=== PATIENT | male | born 1940 | race Caucasian/White ===

== ENCOUNTER 2023-03-28 12:05 | Inpatient (IN) | payer OTHER ==
[~2023-03-28] VITALS: Ht 190.5 cm; Wt 81.6 kg
[2023-03-28 12:14] VITALS: BP_SYST 88; PULSE 83; RESP 18; TEMP 98.3; O2SAT 96
[2023-03-28] MEDS ORDERED: NACL 0.9% 1,000 ML IV ONE (13:15)
[2023-03-28] MEDS ORDERED: SERT-436 PO (13:43)
[2023-03-28] MEDS ORDERED: METF-379 PO ×2 (13:43→15:21)
[2023-03-28] MEDS ORDERED: BENA40TA89 PO (13:43)
[2023-03-28] MEDS ORDERED: OXYC5TAB3 PO (13:43)
[2023-03-28 13:44] LABS: BILIRUBIN,URINE NEGATIVE (NEGATIVE); CLARITY/URINE CLOUDY (CLEAR); COLOR,URINE YELLOW (YELLOW); GLUCOSE,URINE TRACE (NEGATIVE); KETONES,URINE NEGATIVE (NEGATIVE); LEUKOCYTE ESTERASE ,URINE 3+ (NEGATIVE); NITRITE, URINE NEGATIVE (NEGATIVE); PH,URINE >=9.0 (5.0-8.0); PROTEIN URINE 1+ (NEGATIVE); UROBILINOGEN,URINE 0.2 (0.2-1.0)
[2023-03-28 13:52] LABS: BASOPHILS % (AUTO) 0.3 % (0.0-2.0); EOSINOPHILS # (AUTO) 0.2 K/uL (0.0-0.4); EOSINOPHILS % (AUTO) 2.4 % (0.0-4.0); HEMATOCRIT 36.6 % (36-54); HEMOGLOBIN 11.8 g/dL (14.0-18.0); LYMPHOCYTES # (AUTO) 2.3 K/uL (1.0-5.5); LYMPHOCYTES % (AUTO) 27.1 % (20.5-51.5); MEAN CORPUSCULAR HEMOGLOBIN 29 pg (27-31); MEAN CORPUSCULAR HGB CONC 32 % (32-36); MEAN CORPUSCULAR VOLUME 91 fL (79.0-98.0); MONOCYTES # (AUTO) 0.8 K/uL (0.0-1.0); MONOCYTES % (AUTO) 9.5 % (1.7-9.3); NEUTROPHILS # (AUTO) 5.1 K/uL (1.8-7.7); NEUTROPHILS % (AUTO) 60.7 % (40.0-70.0); PLATELET COUNT (AUTO) 254 K/uL (130-430); RED BLOOD CELL COUNT(AUTO) 4.04 MIL/uL (4.2-6.2); RED CELL DISTRIBUTION WIDTH 15.4 % (9.0-15.0); WHITE BLOOD COUNT (AUTO) 8.4 K/uL (4.8-10.8)
[2023-03-28 14:02] LABS: ALANINE AMINOTRANSFERASE 15 U/L (12-78); ANION GAP 1 (5-15); ASPARTATE AMINOTRANSFERASE 20 U/L (10-37); CALCIUM 9.5 mg/dL (8.4-11.0); CARBON DIOXIDE 32 mmol/L (23-29); CHLORIDE 95 mmol/L (98-107); CREATININE 0.81 mg/dL (0.55-1.30); GLUCOSE 186 mg/dL (74-106); POTASSIUM 4.2 mmol/L (3.5-5.1); SODIUM SERUM 128 mmol/L (136-145); TOTAL BILIRUBIN 0.3 mg/dL (0.0-1.0); TOTAL PROTEIN, SERUM 7.1 g/dL (6.4-8.3); UREA NITROGEN, BLOOD 31 mg/dL (8-21)
[2023-03-28 14:45] LABS: BLOOD, URINE TRACE (NEGATIVE)
[2023-03-28 15:01] LABS: BACTERIA,URINE MANY /HPF (None Seen)
[2023-03-28 15:02] LABS: MUCUS,URINE 1+ /LPF (None Seen)
[2023-03-28 15:03] LABS: HYALINE CASTS, URINE 0-10 /LPF (None Seen)
[2023-03-28] MEDS ORDERED: FINA5TAB11 PO (15:21)
[2023-03-28] MEDS ORDERED: FERR325T30 PO (15:21)
[2023-03-28] MEDS ORDERED: SERT50TA PO (15:21)
[2023-03-28] MEDS ORDERED: NA P133E41 PR (15:21)
[2023-03-28] MEDS ORDERED: HYDR-3919 PO (15:21)
[2023-03-28] MEDS ORDERED: OXYIR5 PO (15:21)
[2023-03-28] MEDS ORDERED: DRON2.5C22 PO (15:21)
[2023-03-28] MEDS ORDERED: TAMS0.4C96 PO (15:21)
[2023-03-28] MEDS ORDERED: MOM PO (15:21)
[2023-03-28] MEDS ORDERED: AMIN30LI2 PO (15:21)
[2023-03-28] MEDS ORDERED: MAG1CAPS5 PO (15:21)
[2023-03-28] MEDS ORDERED: NALO4SPR NAS (15:21)
[2023-03-28] MEDS ORDERED: cefTRIAXone 1 GM IVPB PREMIX 50 ML IV ONE (16:45)
[2023-03-28 18:21] VITALS: BP_SYST 119; PULSE 79; RESP 17; TEMP 97.2; O2SAT 98
[2023-03-28] MEDS: D5NS 1,000 ML IV SCH (18:40)
[2023-03-28 18:47] VITALS: BP_SYST 119; PULSE 79; RESP 17; TEMP 97.2; O2SAT 98
[2023-03-28] MEDS ORDERED: HYDROcodone/ACETAMIN 5-325 MG TAB (NORCO/ VICODIN) PO PRN (20:30)
[2023-03-28] MEDS ORDERED: oxyCODONE HCL 5 MG TABLET PO PRN (20:30)
[2023-03-28] MEDS ORDERED: NALOXONE HCL 0.4 MG/ML AMP (NARCAN) IVP PRN (20:30)
[2023-03-28] MEDS ORDERED: MILK OF MAGNESIA 30 ML UDC PO PRN (20:30)
[2023-03-28] MEDS ORDERED: LORazepam 2 MG/ML VIAL IVP PRN (20:45)
[2023-03-28] MEDS ORDERED: ONDANSETRON HCL 4 MG/2 ML VIAL IVP PRN (20:45)
[2023-03-28] MEDS ORDERED: ACETAMINOPHEN 325 MG TABLET PO PRN ×2 (20:45)
[2023-03-28] MEDS ORDERED: AMINO ACIDS PO SCH (21:00)
[2023-03-28] MEDS ORDERED: PROTEIN HYDROLYS PO SCH (21:00)
[2023-03-28] MEDS: TAMSULOSIN HCL 0.4 MG CAP PO SCH (21:39)
[2023-03-28] MEDS: INSULIN REGULAR, HUMAN 100 UNITS/ML, 3 ML VIAL (humuLIN R) SUBCUT PRN (21:47)
[2023-03-28 22:48] VITALS: BP_SYST 116; PULSE 78; RESP 18; TEMP 97.8; O2SAT 98
[2023-03-29 00:21] VITALS: BP_SYST 134; PULSE 75; RESP 19; TEMP 98; O2SAT 97
[2023-03-29] MEDS: D5NS 1,000 ML IV SCH ×3 (00:26→20:44)
[2023-03-29 05:18] LABS: BASOPHILS % (AUTO) 0.3 % (0.0-2.0); EOSINOPHILS # (AUTO) 0.3 K/uL (0.0-0.4); EOSINOPHILS % (AUTO) 3.6 % (0.0-4.0); HEMOGLOBIN 11.7 g/dL (14.0-18.0); LYMPHOCYTES # (AUTO) 2.2 K/uL (1.0-5.5); MEAN CORPUSCULAR HEMOGLOBIN 30 pg (27-31); MEAN CORPUSCULAR HGB CONC 33 % (32-36); MEAN CORPUSCULAR VOLUME 90 fL (79.0-98.0); MONOCYTES # (AUTO) 0.7 K/uL (0.0-1.0); MONOCYTES % (AUTO) 8.6 % (1.7-9.3); NEUTROPHILS # (AUTO) 4.8 K/uL (1.8-7.7); NEUTROPHILS % (AUTO) 59.5 % (40.0-70.0); PLATELET COUNT (AUTO) 232 K/uL (130-430); RED BLOOD CELL COUNT(AUTO) 3.89 MIL/uL (4.2-6.2); RED CELL DISTRIBUTION WIDTH 15.3 % (9.0-15.0)
[2023-03-29 05:29] LABS: ERYTHROCYTE SEDIMENTATION RATE 51 MM/HR (0-15)
[2023-03-29 05:38] LABS: ALANINE AMINOTRANSFERASE 12 U/L (12-78); ALBUMIN 2.8 g/dL (3.4-4.8); ANION GAP 5 (5-15); ASPARTATE AMINOTRANSFERASE 17 U/L (10-37); CARBON DIOXIDE 29 mmol/L (23-29); CHLORIDE 96 mmol/L (98-107); CREATININE 0.76 mg/dL (0.55-1.30); GLUCOSE 146 mg/dL (74-106); PHOSPHORUS 3.5 mg/dL (2.7-4.5); POTASSIUM 3.9 mmol/L (3.5-5.1); SODIUM SERUM 130 mmol/L (136-145); TOTAL BILIRUBIN 0.4 mg/dL (0.0-1.0); TOTAL PROTEIN, SERUM 6.7 g/dL (6.4-8.3); UREA NITROGEN, BLOOD 22 mg/dL (8-21)
[2023-03-29] MEDS: INSULIN REGULAR, HUMAN 100 UNITS/ML, 3 ML VIAL (humuLIN R) SUBCUT PRN ×4 (06:17→20:42)
[2023-03-29 08:00] VITALS: BP_SYST 111; PULSE 68; RESP 18; TEMP 97.8; O2SAT 98
[2023-03-29] MEDS: lisinopriL 20 MG TABLET PO SCH (08:49)
[2023-03-29] MEDS: FERROUS SULFATE 325 MG TABLET.DR PO SCH (08:49)
[2023-03-29] MEDS: SERTRALINE HCL 50 MG TABLET PO SCH (08:49)
[2023-03-29] MEDS: FINASTERIDE 5 MG TABLET (PROSCAR) PO SCH (08:49)
[2023-03-29] MEDS ORDERED: BENAZEPRIL HCL 20 MG TABLET (LOTENSIN) PO SCH (09:00)
[2023-03-29 10:26] VITALS: O2SAT 97
[2023-03-29 11:36] VITALS: BP_SYST 129; PULSE 67; RESP 18; TEMP 98.2; O2SAT 98
[2023-03-29] MEDS ORDERED: cefTRIAXone 1 GM IVPB PREMIX 50 ML IV SCH (17:00)
[2023-03-29 17:27] VITALS: BP_SYST 103; PULSE 78; RESP 17; TEMP 98; O2SAT 97
[2023-03-29 20:00] VITALS: BP_SYST 93; PULSE 62; RESP 18; TEMP 98.2; O2SAT 96
[2023-03-29] MEDS: TAMSULOSIN HCL 0.4 MG CAP PO SCH (20:32)
[2023-03-30 00:17] VITALS: BP_SYST 113; PULSE 72; RESP 19; TEMP 97.4; O2SAT 96
[2023-03-30 02:31] VITALS: BP_SYST 93; PULSE 62; RESP 18; TEMP 98.2; O2SAT 96
[2023-03-30 05:56] LABS: BASOPHILS % (AUTO) 0.2 % (0.0-2.0); EOSINOPHILS # (AUTO) 0.3 K/uL (0.0-0.4); EOSINOPHILS % (AUTO) 3.8 % (0.0-4.0); HEMATOCRIT 33.9 % (36-54); HEMOGLOBIN 11.2 g/dL (14.0-18.0); LYMPHOCYTES # (AUTO) 2.1 K/uL (1.0-5.5); LYMPHOCYTES % (AUTO) 28.6 % (20.5-51.5); MEAN CORPUSCULAR HEMOGLOBIN 30 pg (27-31); MEAN CORPUSCULAR HGB CONC 33 % (32-36); MEAN CORPUSCULAR VOLUME 90 fL (79.0-98.0); MONOCYTES # (AUTO) 0.7 K/uL (0.0-1.0); NEUTROPHILS # (AUTO) 4.4 K/uL (1.8-7.7); NEUTROPHILS % (AUTO) 58.4 % (40.0-70.0); PLATELET COUNT (AUTO) 215 K/uL (130-430); RED BLOOD CELL COUNT(AUTO) 3.76 MIL/uL (4.2-6.2); RED CELL DISTRIBUTION WIDTH 15.2 % (9.0-15.0); WHITE BLOOD COUNT (AUTO) 7.5 K/uL (4.8-10.8)
[2023-03-30] MEDS: D5NS 1,000 ML IV SCH ×2 (06:16→17:30)
[2023-03-30 06:41] LABS: ANION GAP 6 (5-15); CALCIUM 8.9 mg/dL (8.4-11.0); CARBON DIOXIDE 28 mmol/L (23-29); CHLORIDE 96 mmol/L (98-107); CREATININE 0.68 mg/dL (0.55-1.30); GLUCOSE 149 mg/dL (74-106); POTASSIUM 3.7 mmol/L (3.5-5.1); SODIUM SERUM 130 mmol/L (136-145); UREA NITROGEN, BLOOD 16 mg/dL (8-21)
[2023-03-30 07:18] LABS: ERYTHROCYTE SEDIMENTATION RATE 52 MM/HR (0-15)
[2023-03-30 08:00] VITALS: BP_SYST 107; PULSE 90; RESP 18; TEMP 97.4; O2SAT 96
[2023-03-30] MEDS: lisinopriL 20 MG TABLET PO SCH (09:00)
[2023-03-30] MEDS: FINASTERIDE 5 MG TABLET (PROSCAR) PO SCH (09:20)
[2023-03-30] MEDS: FERROUS SULFATE 325 MG TABLET.DR PO SCH (09:20)
[2023-03-30] MEDS: SERTRALINE HCL 50 MG TABLET PO SCH (09:20)
[2023-03-30 11:11] VITALS: BP_SYST 128; PULSE 80; RESP 18; TEMP 97.1; O2SAT 99
[2023-03-30] MEDS: INSULIN REGULAR, HUMAN 100 UNITS/ML, 3 ML VIAL (humuLIN R) SUBCUT PRN (11:20)
[2023-03-30 16:00] VITALS: BP_SYST 120; PULSE 70; RESP 18; TEMP 97.1; O2SAT 97
[2023-03-30] MEDS ORDERED: CEPH250C PO (18:23)
[2023-03-30] MEDS ORDERED: FURO-150 PO (18:23)
[2023-03-30 18:50] VITALS: BP_SYST 120; PULSE 70; RESP 18; TEMP 97.6; O2SAT 97
[2023-03-30] MEDS ORDERED: cephALEXin 250 MG CAPSULE PO SCH (21:00)
== END 2023-03-30 20:20 | DRG 871 ==
LOC: SED 12:05 → SMU 14:42
PROVIDERS: ADMIT Preventive Medicine Preventive Medicine/Occupational Environmental Medicine; ATTEND Preventive Medicine Preventive Medicine/Occupational Environmental Medicine
DX: A41.9 Sepsis, unspecified organism (principal); G93.41 Metabolic encephalopathy; N39.0 Urinary tract infection, site not specified; E87.1 Hypo-osmolality and hyponatremia; E87.3 Alkalosis; E88.09 Other disorders of plasma-protein metabolism, not elsewhere classified; E11.65 Type 2 diabetes mellitus with hyperglycemia; I10 Essential (primary) hypertension; E78.5 Hyperlipidemia, unspecified; D64.9 Anemia, unspecified; N40.0 Benign prostatic hyperplasia without lower urinary tract symptoms; B96.4 Proteus (mirabilis) (morganii) as the cause of diseases classified elsewhere; R53.81 Other malaise; Z88.0 Allergy status to penicillin; Z79.899 Other long term (current) drug therapy
CPT/HCPCS: 36415; 71045; 80048; 80053; 81000; 82962; 83605; 83735; 84100; 85025; 85651-TC; 87040; 87081; 87086; 93005; 97116-GP; 97163-GP; 97530-GP; 99285; J0696; J1815; J7042; Q0167